=== PATIENT | male | born 1975 | race Hispanic/Latino ===

== ENCOUNTER 2017-06-02 | Emergency (ER) | payer SELFPAY ==
--- NOTE | 2017-06-02 13:29 | ER ---
Nurse's Notes [facility] Name: Joey Winter Jr Age: 41 yrs Sex: Male : 1975 Arrival Date: 06/02/2017 Time: 12:06 Bed 19 Private MD: Bryanna Abad Diagnosis: Direct inguinal hernia Presentation: 06/02 12:08 Presenting complaint: Patient states: last night i was turning over and i noticed a tw2 right sided pain, felt similar to a pulled groin, but different, i went to dr. dias yesterday, but nothing was done, i feel like my stomach is just rumbling all the time. Transition of care: patient was not received from another setting of care. Onset of symptoms was June 02, 2017. Care prior to arrival: None. 12:08 Method Of Arrival: Ambulatory tw2 12:08 Acuity: CATHIE 3 tw2 Triage Assessment: 12:14 General: Appears in no apparent distress. well groomed, Behavior is calm, cooperative, tw2 appropriate for age. Pain: Complains of pain in right lower quadrant. Historical: - Allergies: 12:14 No Known Allergies; tw2 - Home Meds: 12:14 None [Active]; tw2 - PMHx: 12:14 None; tw2 - PSHx: 12:14 None; tw2 - Immunization history:: Adult Immunizations up to date. - Social history:: Smoking status: Patient/guardian denies using tobacco. - Family history:: not pertinent. - Hospitalizations: : No recent hospitalization is reported. Screenin:31 Abuse screen: Denies threats or abuse. Denies injuries from another. Nutritional iw screening: No deficits noted. Tuberculosis screening: No symptoms or risk factors identified. Fall Risk None identified. Assessment: 13:31 General: Appears in no apparent distress. comfortable, Behavior is calm, cooperative. iw Pain: Complains of pain in groin. Neuro: Level of Consciousness is awake, alert, obeys commands, Oriented to person, place, time, situation, Moves all extremities. Full function. Cardiovascular: Patient's skin is warm and dry. Respiratory: Respiratory effort is even, unlabored, Respiratory pattern is regular, symmetrical. GI: Abdomen is flat, non-distended. Derm: Skin is intact. Musculoskeletal: Range of motion: intact in all extremities. Vital Signs: 12:11 BP 119 / 82; Pulse 100; Resp 18; Temp 98.(O); Pulse Ox 100% on R/A; Weight 61.23 kg tw2 (R); Height 5 ft. 7 in. (170.18 cm); Pain 3/10; 12:11 Body Mass Index 21.14 (61.23 kg, 170.18 cm) tw2 ED Course: 12:06 Patient arrived in ED. rg4 12:07 Bryanna Abad MD is Private Physician. rg4 12:11 Triage completed. tw2 12:14 Arm band placed on. tw2 12:53 Immanuel Douglas MD is Attending Physician. rn 13:28 Chavez Lassiter MD is Referral Physician. rn 13:30 Ainsley Murrell RN is Primary Nurse. iw 13:32 Patient has correct armband on for positive identification. iw 13:32 No provider procedures requiring assistance completed. Patient did not have IV access iw during this emergency room visit. Administered Medications: No medications were administered Outcome: 13:28 Discharge ordered by . rn 13:32 Medical screen evaluation completed per provider. Patient declined treatment. iw 13:32 Condition: good 13:32 Discharge instructions given to patient, Instructed on Following a medical screening exam, the patient was provided information regarding alternative care sites and resources available per registration personnel. 13:32 Patient left the ED. iw Signatures: Ainsley Murrell, MARY RN iw Immanuel Douglas MD MD rn Wise, Tara, RN RN Kathleen Sesay rg4
--- NOTE | 2017-06-02 13:29 | EDPHYS ---
Physician Documentation [facility] Name: Joey Winter Jr Age: 41 yrs Sex: Male : 1975 Arrival Date: 06/02/2017 Time: 12:06 Bed 19 Private MD: Bryanna Abad ED Physician Immanuel Douglas HPI: 06/02 13:24 This 41 yrs old Male presents to ER via Ambulatory with complaints of LOW ABD rn PAIN. 13:24 The patient presents with abdominal pain. Onset: The symptoms/episode began/occurred rn yesterday. The symptoms are described as achy, intermittent. Severity of pain: At its worst the pain was mild in the emergency department the pain is unchanged. The patient has not experienced similar symptoms in the past. The patient has not recently seen a physician. Reports lower groin pain, began last night, intermittent, felt small swelling, no trauma, denies fever/anorexia/vomiting/blood in stool. . Historical: - Allergies: 12:14 No Known Allergies; tw2 - Home Meds: 12:14 None [Active]; tw2 - PMHx: 12:14 None; tw2 - PSHx: 12:14 None; tw2 - Immunization history:: Adult Immunizations up to date. - Social history:: Smoking status: Patient/guardian denies using tobacco. - Family history:: not pertinent. - Hospitalizations: : No recent hospitalization is reported. ROS: 13:24 Constitutional: Negative for fever, chills, and weight loss, Eyes: Negative for injury, rn pain, redness, and discharge, Cardiovascular: Negative for chest pain, palpitations, and edema, Respiratory: Negative for shortness of breath, cough, wheezing, and pleuritic chest pain, Abdomen/GI: Negative for nausea, vomiting, diarrhea, and constipation, Back: Negative for injury and pain, : Negative for injury, bleeding, discharge, and swelling, MS/Extremity: Negative for injury and deformity, Skin: Negative for injury, rash, and discoloration, Neuro: Negative for headache, weakness, numbness, tingling, and seizure. Exam: 13:24 Constitutional: This is a well developed, well nourished patient who is awake, alert, rn and in no acute distress. Abdomen/GI: soft, + mild tenderness right pubic area with very small bulge with straining, no peritoneal signs, no skin changes, neg rovsing Vital Signs: 12:11 BP 119 / 82; Pulse 100; Resp 18; Temp 98.(O); Pulse Ox 100% on R/A; Weight 61.23 kg tw2 (R); Height 5 ft. 7 in. (170.18 cm); Pain 3/10; 12:11 Body Mass Index 21.14 (61.23 kg, 170.18 cm) tw2 MDM: 12:53 Patient medically screened. rn 13:24 Differential diagnosis: direct inguinal hernia. Data reviewed: vital signs, nurses rn notes, and as a result, I will discharge patient. Counseling: I had a detailed discussion with the patient and/or guardian regarding: the historical points, exam findings, and any diagnostic results supporting the discharge/admit diagnosis, the need for outpatient follow up, to return to the emergency department if symptoms worsen or persist or if there are any questions or concerns that arise at home. Medical screen evaluation completed. [facility] emergency medical condition absent. ED course: Pt without fever/vomiting/anorexia, or focal RLQ pain to indicate appendicitis, most likely direct hernia, no signs of strangulation or incarceration, will dc home with return precautions and general surgery f/u. . Administered Medications: No medications were administered Disposition: 06/02/17 13:28 Discharged to Home as Medical Screen. Impression: Direct inguinal hernia. - Condition is Stable. - Discharge Instructions: Hernia, Inguinal Hernia, Adult. - Medication Reconciliation Form, Thank You Letter, Antibiotic Education, Prescription Opioid Use form. - Follow up: Chavez Lassiter MD; When: As needed; Reason: Recheck today's complaints, Re-evaluation by your physician. - Problem is new. - Symptoms have improved. Signatures: Ainsley Murrell, RN RN iw Immanuel Douglas MD MD rn Wise, Tara, RN RN tw2
== END 2017-06-02 13:32 | disposition home or self-care (01) ==
DX: K40.90 Unilateral inguinal hernia, without obstruction or gangrene, not specified as recurrent (principal)
CPT/HCPCS: 99281

== ENCOUNTER 2020-03-13 22:58 | Emergency (ER) | payer SELFPAY ==
[2020-03-13] MEDS ORDERED: NA CHLORIDE 0.9% 1,000 ML ONE (23:45)
[2020-03-13 23:47] LABS: Absolute Lymphocytes (CBC) 1.3 K/uL (0.7-4.9); Basophils % 0.3 % (0-1.3); Lymphocytes % 26.6 % (15.3-44.8); Protime INR 1.07; RBC Red Blood Cell Count 4.34 M/uL (4.33-5.43)
[2020-03-14 00:05] LABS: ALT/SGPT 22 U/L (12-78); AST/SGOT 21 U/L (15-37); Albumin 4.1 g/dL (3.4-5.0); Alkaline Phosphatase 66 U/L (45-117); BUN Blood Urea Nitrogen 22 mg/dL (7-18); Bicarbonate 28 mmol/L (21-32); Bilirubin Direct < 0.1 mg/dL (0-0.2); Bilirubin Total 0.3 mg/dL (0.2-1.0); Glucose Level 103 mg/dL (74-106); Magnesium 2.1 mg/dL (1.8-2.4); Potassium 3.3 mmol/L (3.5-5.1); Protein, Total 7.9 g/dL (6.4-8.2); Sodium Level 139 mmol/L (136-145); Troponin (Emerg Dept Use Only) < 0.02 ng/mL (0.0-0.045)
[2020-03-14 01:16] LABS: T3 Free 3.08 pg/mL (2.18-3.98); T4,Total 11.4 ug/dL (4.5-12.1)
--- NOTE | 2020-03-14 01:25 | EDPHYS ---
Physician Documentation [facility] Name: Joey Winter Jr Age: 44 yrs Sex: Male : 1975 Arrival Date: 03/13/2020 Time: 23:03 Bed 4 Private MD: ED Physician Santos Rai HPI: 03/13 23:20 This 44 yrs old Male presents to ER via Ambulatory with complaints of cp Palpitations, High Blood Pressure. 23:20 The patient presents with a history of heart racing. Context: The symptoms occur with cp light activity, with strenuous activity. Onset: The symptoms/episode began/occurred 2 week(s) ago. Duration: The patient or guardian reports multiple episodes, that are intermittent. 23:20 Modifying factors: The symptoms are aggravated by exercising. cp 23:20 Associated signs and symptoms: Pertinent positives: anxiety, Pertinent negatives: chest cp pain, fever, syncope. Severity of symptoms: in the emergency department the symptoms are unchanged despite home interventions. The patient has been recently seen by a physician: earlier today, with similar presenting complaints, lab tests were done, saw family physician, awaiting results of blood work. Historical: - Allergies: 23:23 No Known Allergies; sg - Home Meds: 23:23 None [Active]; sg - PMHx: 23:23 None; sg - PSHx: 23:23 None; sg - Immunization history:: Adult Immunizations up to date. - Social history:: Smoking status: Patient denies any tobacco usage or history of. ROS: 23:23 Cardiovascular: Positive for palpitations, Negative for chest pain, edema. cp 23:23 Eyes: Negative for injury, pain, redness, and discharge. cp 23:23 Constitutional: Negative for body aches, chills, fever, poor PO intake. 23:23 Respiratory: Negative for cough, shortness of breath, wheezing. 23:23 Abdomen/GI: Negative for abdominal pain, nausea, vomiting, and diarrhea. 23:23 Skin: Negative for rash. 23:23 Neuro: Negative for altered mental status, headache, syncope, weakness. 23:23 All other systems are negative. Exam: 23:25 ECG was reviewed by the Attending Physician. cp 23:28 Constitutional: The patient appears in no acute distress, alert, awake, cp non-diaphoretic, non-toxic, well developed, well nourished, anxious. 23:28 Head/Face: Normocephalic, atraumatic. cp 23:28 Eyes: Periorbital structures: appear normal, Conjunctiva: normal, no exudate, no injection, Sclera: no appreciated abnormality, Lids and lashes: appear normal, bilaterally. 23:28 ENT: External ear(s): are unremarkable, Nose: is normal, Posterior pharynx: Airway: no evidence of obstruction, patent. 23:28 Neck: ROM/movement: is normal, is supple, without pain, no range of motions limitations, no nuchal rigidity. 23:28 Chest/axilla: Inspection: normal, Palpation: is normal, no crepitus, no tenderness. 23:28 Cardiovascular: Rate: normal, Rhythm: regular, Pulses: Pulses are 2+ in right radial artery and left radial artery. Edema: is not appreciated, JVD: is not appreciated. 23:28 Respiratory: the patient does not display signs of respiratory distress, Respirations: normal, no use of accessory muscles, no retractions, labored breathing, is not present, Breath sounds: are clear throughout, no decreased breath sounds, no stridor, no wheezing. 23:28 Abdomen/GI: Inspection: abdomen appears normal, Palpation: abdomen is soft and non-tender, in all quadrants, voluntary guarding, is not appreciated, involuntary guarding, is not appreciated. 23:28 Back: pain, is absent, ROM is normal. 23:28 Skin: no rash present. 23:28 Neuro: Orientation: to person, place \T\ time. Mentation: is normal, Cerebellar function: is grossly normal, Motor: moves all fours, strength is normal, Sensation: is normal. Vital Signs: 23:24 Pulse 74 MON; Resp 16; Temp 97.7; Pulse Ox 100% on R/A; sg 03/14 01:00 BP 130 / 77; Pulse 73; Resp 18; Pulse Ox 99% on R/A; ea 01:28 BP 116 / 70; Pulse 64; Resp 18; Pulse Ox 98% on R/A; ea MDM: 03/13 23:16 Patient medically screened. cp 03/14 01:22 Data reviewed: vital signs, nurses notes, lab test result(s), EKG, radiologic studies, cp plain films. 01: Test interpretation: by ED physician or midlevel provider: ECG, chest xray negative for cp infiltrates. Counseling: I had a detailed discussion with the patient and/or guardian regarding: the historical points, exam findings, and any diagnostic results supporting the discharge/admit diagnosis, lab results, radiology results, the need for outpatient follow up, a family practitioner, to return to the emergency department if symptoms worsen or persist or if there are any questions or concerns that arise at home. ED course: VSS. No episodes of tachcardia observed while monitoring patient in ED. Will discharge to home for continued monitoring. 03/13 23:08 Order name: UDS cp 03/13 23:27 Order name: Basic Metabolic Panel; Complete Time: 00:38 cp 03/14 00:38 Interpretation: Normal except: K 3.3; BUN 22; GFR 78. cp 03/13 23:27 Order name: CBC with Diff; Complete Time: 00:38 cp 03/13 23:27 Order name: LFT's; Complete Time: 00:38 cp 03/14 00:38 Interpretation: Normal except: GLOB 3.8. cp 03/13 23:27 Order name: Magnesium; Complete Time: 00:38 cp 03/13 23:27 Order name: PT-INR; Complete Time: 00:38 cp 03/14 00:41 Interpretation: PT 12.6; Reviewed. cp 03/13 23:27 Order name: Troponin (emerg Dept Use Only); Complete Time: 00:38 cp 03/13 23:27 Order name: TSH; Complete Time: 00:38 cp 03/14 00:39 Interpretation: Abnormal: TSH 8.380. cp 03/14 00:14 Order name: T4 Free; Complete Time: 00:38 EDMS 03/14 00:42 Order name: T3 Free; Complete Time: 01:17 cp 03/14 00:42 Order name: T4,Total; Complete Time: :17 cp 03/14 00:43 Order name: LAB Add On cp 03/14 00:47 Order name: T3, Total; Complete Time: 01:17 EDMS 03/13 23:08 Order name: EKG; Complete Time: 23:09 cp 03/13 23:08 Order name: EKG - Nurse/Tech; Complete Time: 23:47 cp 03/13 23:27 Order name: XRAY Chest (1 view) 03/13 23:27 Order name: Cardiac monitoring; Complete Time: 23:28 cp 03/13 23:27 Order name: IV Saline Lock; Complete Time: 23:28 cp 03/13 23:27 Order name: Labs collected and sent; Complete Time: 23:28 cp 03/13 23:27 Order name: O2 Per Protocol; Complete Time: 00:07 cp 03/13 23:27 Order name: O2 Sat Monitoring; Complete Time: 00:07 cp EC/19 23:25 Rate is 77 beats/min. Rhythm is regular. WV interval is normal. QRS interval is cp prolonged at 104 msec. QT interval is normal. T waves are Inverted in leads aVL, aVR. Interpreted by me. Reviewed by me. Administered Medications: 23:47 Drug: NS 0.9% 1000 ml Route: IV; Rate: 1 bolus; Site: right antecubital; coy 03/14 01:28 Follow up: Response: No adverse reaction; IV Status: Completed infusion; IV Intake: ea 1000ml Disposition: 07:00 Co-signature as Attending Physician, Santos Rai MD. ma2 Disposition: 03/14/20 01:24 Discharged to Home. Impression: Palpitations, Abnormal results of thyroid function studies - elevated TSH. - Condition is Stable. - Discharge Instructions: Holter Monitoring, Hypothyroidism, Palpitations. - Medication Reconciliation Form, Thank You Letter, Antibiotic Education, Prescription Opioid Use form. - Follow up: Private Physician; When: 1 - 2 days; Reason: Recheck today's complaints. - Problem is new. - Symptoms have improved. Signatures: Dispatcher [employer] EDAlvin Mancera RN RN John Mccracken PA PA cp Antunez, Elena, RN RN ea Alzahri, Mohammad, MD MD ma2 David Maldonado RN RN rv Corrections: (The following items were deleted from the chart) 01:38 01:24 03/14/2020 01:24 Discharged to Home. Impression: Palpitations; Abnormal results rv of thyroid function studies - elevated TSH. Condition is Stable. Forms are Medication Reconciliation Form, Thank You Letter, Antibiotic Education, Prescription Opioid Use. Follow up: Private Physician; When: 1 - 2 days; Reason: Recheck today's complaints. Problem is new. Symptoms have improved. cp
--- NOTE | 2020-03-14 01:25 | ER ---
Nurse's Notes [facility] Name: Joey Winter Jr Age: 44 yrs Sex: Male : 1975 Arrival Date: 03/13/2020 Time: 23:03 Bed 4 Private MD: Diagnosis: Palpitations;Abnormal results of thyroid function studies-elevated TSH Presentation: 03/13 23:22 Chief complaint: Patient states: I have the sensation that my heart is pounding, and sg feels like palpitations now, my blood pressure has been running higher than normal for me. Im pretty healthy, I work out regularly and do not use any work out supplements, no other symptoms reported for triage at this time. Coronavirus screen: Client denies travel out of the [place] in the last 14 days. At this time, the client does not indicate any symptoms associated with coronavirus-19. Ebola Screen: Patient negative for fever greater than or equal to 101.5 degrees Fahrenheit, and additional compatible Ebola Virus Disease symptoms Patient denies exposure to infectious person. Patient denies travel to an Ebola-affected area in the 21 days before illness onset. No symptoms or risks identified at this time. Initial Sepsis Screen: Does the patient meet any 2 criteria? No. Patient's initial sepsis screen is negative. Does the patient have a suspected source of infection? No. Patient's initial sepsis screen is negative. Risk Assessment: Do you want to hurt yourself or someone else? Patient reports no desire to harm self or others. Onset of symptoms was March 13, 2020. Care prior to arrival: None. Mechanism of Injury: No Mechanism of Injury. Transition of care: patient was not received from another setting of care. 23:22 Acuity: CATHIE 3 sg 23:22 Method Of Arrival: Ambulatory sg Historical: - Allergies: 23:23 No Known Allergies; sg - Home Meds: 23:23 None [Active]; sg - PMHx: 23:23 None; sg - PSHx: 23:23 None; sg - Immunization history:: Adult Immunizations up to date. - Social history:: Smoking status: Patient denies any tobacco usage or history of. Screenin:27 Abuse screen: Denies threats or abuse. Nutritional screening: No deficits noted. ea Tuberculosis screening: No symptoms or risk factors identified. Fall Risk IV access (20 points). Assessment: 23:26 General: Appears in no apparent distress. Behavior is anxious. Pain: Denies pain. ea Neuro: Level of Consciousness is awake, alert, obeys commands, Oriented to person, place, time. Cardiovascular: Patient's skin is warm and dry. Respiratory: Airway is patent Respiratory effort is even, unlabored, Respiratory pattern is regular, symmetrical. Derm: Skin is pink, warm \T\ dry. 03/14 00:50 Reassessment: Patient and/or family updated on plan of care and expected duration. Pain ea level reassessed. Patient is alert, oriented x 3, equal unlabored respirations, skin warm/dry/pink. Vital Signs: 03/13 23:24 Pulse 74 MON; Resp 16; Temp 97.7; Pulse Ox 100% on R/A; sg 03/14 01:00 BP 130 / 77; Pulse 73; Resp 18; Pulse Ox 99% on R/A; ea 01:28 BP 116 / 70; Pulse 64; Resp 18; Pulse Ox 98% on R/A; ea ED Course: 03/13 23:03 Patient arrived in ED. cf2 23:08 John Aden PA is PHCP. cp 23:08 Santos Rai MD is Attending Physician. cp 23:14 David Maldonado RN is Primary Nurse. rv 23:22 Arm band placed on. sg 23:23 Triage completed. sg 23:27 Patient has correct armband on for positive identification. Placed in gown. Bed in low ea position. Call light in reach. Side rails up X 1. security monitor on. Pulse ox on. NIBP on. 23:27 Inserted saline lock: 20 gauge in right antecubital area, using aseptic technique. ea Blood collected. 03/14 00:18 XRAY Chest (1 view) In Process Unspecified. EDMS 01:00 No provider procedures requiring assistance completed. ea 01:38 IV discontinued, intact, bleeding controlled, No redness/swelling at site. Pressure rv dressing applied. Administered Medications: 03/13 23:47 Drug: NS 0.9% 1000 ml Route: IV; Rate: 1 bolus; Site: right antecubital; ea 03/14 01:28 Follow up: Response: No adverse reaction; IV Status: Completed infusion; IV Intake: ea 1000ml Intake: 01:28 IV: 1000ml; Total: 1000ml. ea Outcome: 01:24 Discharge ordered by . cp 01:38 Discharged to home ambulatory. rv 01:38 Condition: good 01:38 Discharge instructions given to patient, Instructed on discharge instructions, follow up and referral plans. Demonstrated understanding of instructions, follow-up care. 01:38 Patient left the ED. rv Signatures: Dispatcher [employer] EDMS Alivn Bergman RN RN John Mccracken PA PA cp Antunez, Elena RN David Coles ea RN RN Salomón Ceballos cf2
[2020-03-14 01:42] VITALS: TEMP 97.7
[2020-03-14 01:45] VITALS: BP 116/70; O2SAT 98
--- NOTE | 2020-03-14 08:08 | RAD REPORT ---
EXAM DESCRIPTION: [facility] Single View03/14/2020 12:18 am CLINICAL HISTORY: Palpitations COMPARISON: 2012 FINDINGS: The lungs appear clear of acute infiltrate. The heart is normal size IMPRESSION: No acute abnormalities displayed
== END 2020-03-14 01:38 | disposition home or self-care (01) ==
LOC: ER 22:58
DX: R00.2 Palpitations (principal); R94.6 Abnormal results of thyroid function studies
CPT/HCPCS: 36415; 71045; 80048; 80076; 83735; 84436; 84439; 84443; 84480; 84481; 84484; 85025; 85610; 93005; 96360; 96361; 99284; J7030

== ENCOUNTER 2020-09-24 21:49 | Emergency (ER) | payer SELFPAY ==
--- OUTSIDE RECORDS SUMMARY | 2020-09-24 21:53 | XMS REPORT | Continuity of Care Document ---
:1975 Author Organization [facility] t Address [address] [place] [address] Dr. Martinez [address] [place] [id number] Care Team Providers Name Role Phone Unavailable Unavailable Unavailable Problems This patient has no known problems. Allergies, Adverse Reactions, Alerts This patient has no known allergies or adverse reactions. Medications This patient has no known medications. Procedures This patient has no known procedures. Encounters Start End Encounter Admission Attending Care Care Encounter Source Date/Time Date/Time Type Type Clinicians Facility Department ID 2020-09-10 2020-09-10 Emergency E [id number] [facility] 18:29:00 18:29:00 2020-03-19 2020-03-19 Emergency E [id number] [facility] 21:17:00 21:17:00 Results This patient has no known results.
[2020-09-24 23:40] LABS: Absolute Lymphocytes (CBC) 1.2 K/uL (0.7-4.9); Basophils % 0.4 % (0-1.3); Hematocrit 40.6 % (39.6-49.0); Lymphocytes % 25.4 % (15.3-44.8); MPV 8.8 fL (7.6-11.3); RBC Red Blood Cell Count 4.38 M/uL (4.33-5.43)
[2020-09-24 23:57] LABS: Albumin 4.1 g/dL (3.4-5.0); Bilirubin Direct 0.1 mg/dL (0-0.2); Bilirubin Total 0.3 mg/dL (0.2-1.0); Potassium 3.8 mmol/L (3.5-5.1); Protein, Total 7.8 g/dL (6.4-8.2)
[2020-09-25 00:28] LABS: Urine Blood Negative (Negative); Urine Glucose Negative (Negative); Urine Protein Negative (Negative)
--- NOTE | 2020-09-25 01:27 | EDPHYS ---
Physician Documentation [facility] Name: Joey Winter Jr Age: 44 yrs Sex: Male : 1975 Arrival Date: 09/24/2020 Time: 21:55 Bed Treatment Private MD: JAMES Physician John Vega HPI: 09/25 01:21 This 44 yrs old Male presents to ER via Ambulatory with complaints of delano Abdominal Pain. 01:21 The patient presents with abdominal pain in the upper abdomen, in the lower abdomen, delano abdominal distention in the upper abdomen, in the lower abdomen. Onset: The symptoms/episode began/occurred 1 month(s) ago. The symptoms do not radiate. Associated signs and symptoms: none. The symptoms are described as crampy. Modifying factors: The symptoms are alleviated by nothing, the symptoms are aggravated by nothing. Severity of pain: At its worst the pain was mild in the emergency department the pain is unchanged. The patient has experienced similar episodes in the past, several times. Historical: - Allergies: 09/24 23:19 No Known Allergies; bb - Home Meds: 23:19 None [Active]; bb - PMHx: 23:19 None; bb - PSHx: 23:19 None; bb - Immunization history:: Adult Immunizations up to date, Client reports having NOT received the Covid vaccine. - Social history:: Smoking status: Patient denies any tobacco usage or history of. Patient/guardian denies using alcohol, street drugs. - Family history:: not pertinent. ROS: 09/25 01:21 Constitutional: Negative for fever, chills, and weight loss, Eyes: Negative for injury, delano pain, redness, and discharge, ENT: Negative for injury, pain, and discharge, Neck: Negative for injury, pain, and swelling, Cardiovascular: Negative for chest pain, palpitations, and edema, Respiratory: Negative for shortness of breath, cough, wheezing, and pleuritic chest pain, Back: Negative for injury and pain, : Negative for injury, bleeding, discharge, and swelling, MS/Extremity: Negative for injury and deformity, Skin: Negative for injury, rash, and discoloration, Neuro: Negative for headache, weakness, numbness, tingling, and seizure, Psych: Negative for depression, anxiety, suicide ideation, homicidal ideation, and hallucinations, Allergy/Immunology: Negative for hives, rash, and allergies, Endocrine: Negative for neck swelling, polydipsia, polyuria, polyphagia, and marked weight changes, Hematologic/Lymphatic: Negative for swollen nodes, abnormal bleeding, and unusual bruising. Abdomen/GI: Positive for abdominal pain, constipation, abdominal cramps. Exam: 01:21 Constitutional: This is a well developed, well nourished patient who is awake, alert, delano and in no acute distress. Head/Face: Normocephalic, atraumatic. Eyes: Pupils equal round and reactive to light, extra-ocular motions intact. Lids and lashes normal. Conjunctiva and sclera are non-icteric and not injected. Cornea within normal limits. Periorbital areas with no swelling, redness, or edema. ENT: Nares patent. No nasal discharge, no septal abnormalities noted. Tympanic membranes are normal and external auditory canals are clear. Oropharynx with no redness, swelling, or masses, exudates, or evidence of obstruction, uvula midline. Mucous membranes moist. Neck: Trachea midline, no thyromegaly or masses palpated, and no cervical lymphadenopathy. Supple, full range of motion without nuchal rigidity, or vertebral point tenderness. No Meningismus. Chest/axilla: Normal chest wall appearance and motion. Nontender with no deformity. No lesions are appreciated. Cardiovascular: Regular rate and rhythm with a normal S1 and S2. No gallops, murmurs, or rubs. Normal PMI, no JVD. No pulse deficits. Respiratory: Lungs have equal breath sounds bilaterally, clear to auscultation and percussion. No rales, rhonchi or wheezes noted. No increased work of breathing, no retractions or nasal flaring. Abdomen/GI: Soft, non-tender, with normal bowel sounds. No distension or tympany. No guarding or rebound. No evidence of tenderness throughout. Back: No spinal tenderness. No costovertebral tenderness. Full range of motion. Male : Normal genitalia with no discharge or lesions. Skin: Warm, dry with normal turgor. Normal color with no rashes, no lesions, and no evidence of cellulitis. MS/ Extremity: Pulses equal, no cyanosis. Neurovascular intact. Full, normal range of motion. Neuro: Awake and alert, GCS 15, oriented to person, place, time, and situation. Cranial nerves II-XII grossly intact. Motor strength 5/5 in all extremities. Sensory grossly intact. Cerebellar exam normal. Normal gait. Psych: Awake, alert, with orientation to person, place and time. Behavior, mood, and affect are within normal limits. Vital Signs: 09/24 23:16 BP 131 / 91; Pulse 78; Resp 16 S; Temp 98.6(O); Pulse Ox 100% on R/A; Weight 57.61 kg bb (R); Height 5 ft. 7 in. (170.18 cm) (R); Pain 6/10; 09/25 01:14 BP 124 / 76; Pulse 69; Resp 16 S; Temp 96.5(O); Pulse Ox 98% on R/A; bb 09/24 23:16 Body Mass Index 19.89 (57.61 kg, 170.18 cm) MDM: 00:35 Patient medically screened. delano 01:23 Differential diagnosis: cholecystitis, Cholelithiasis, diverticulitis, gastritis, delano Mesenteric ischemia or infarction, non-specific abd pain, pancreatitis, Pyelonephritis, Ureterolithiasis, urinary tract infection. Data reviewed: vital signs, nurses notes, lab test result(s), radiologic studies, CT scan. Data interpreted: monitoring manager: not applicable for this patient encounter. rate is 69 beats/min, Pulse oximetry: on room air is 98 %. Counseling: I had a detailed discussion with the patient and/or guardian regarding: the historical points, exam findings, and any diagnostic results supporting the discharge/admit diagnosis, lab results, radiology results, the need for outpatient follow up, for definitive care, a family practitioner, a mexican food cook. 09/24 23:20 Order name: Basic Metabolic Panel; Complete Time: 00:52 bb 09/24 23:20 Order name: CBC with Diff; Complete Time: 00:52 bb 09/24 23:20 Order name: Hepatic Function; Complete Time: 00:52 bb 09/24 23:20 Order name: Lipase; Complete Time: 00:52 bb 09/24 23:29 Order name: CT Abd/Pelvis - IV Contrast Only 09/25 00:28 Order name: Urine Dipstick-Ancillary; Complete Time: 00:52 EDMS 09/24 23:20 Order name: IV Saline Lock; Complete Time: 23:30 bb 09/24 23:20 Order name: Labs collected and sent; Complete Time: 23:30 bb 09/24 23:27 Order name: Urine Dipstick-Ancillary (obtain specimen); Complete Time: 23:41 bb Administered Medications: No medications were administered Disposition Summary: 09/25/20 01:26 Discharge Ordered Location: Home delano Problem: new delano Symptoms: have improved delano Condition: Stable delano Diagnosis - Abdominal pain, Generalized delano - Constipation, unspecified delano Followup: delano - With: Private Physician - When: 2 - 3 days - Reason: Recheck today's complaints, Continuance of care, Re-evaluation by your physician Followup: delano - With: Fina Peterson MD - When: 2 - 3 days - Reason: Recheck today's complaints, Continuance of care, Re-evaluation by your physician Discharge Instructions: - Discharge Summary Sheet delano - Abdominal Pain, Adult delano - Constipation, Adult delano - Constipation, Adult, [id number] delano - Abdominal Pain, Adult, [id number] delano Forms: - Medication Reconciliation Form delano - Thank You Letter delano - Antibiotic Education delano - Prescription Opioid Use [facility] Prescriptions: - Colace 100 mg Oral Tablet - take 1 tablet by ORAL route every 12 hours; 14 tablet; Refills: 0, Product delano Selection Permitted - dicyclomine 20 mg Oral Tablet - take 1 tablet by ORAL route 4 times per day; 20 tablet; Refills: 0, Product delano Selection Permitted Signatures: Dispatcher [employer] John Valdes MD MD cha Ballard, Brenda, RN RN bb
--- NOTE | 2020-09-25 01:27 | ER ---
Nurse's Notes [facility] Name: Joey Winter Jr Age: 44 yrs Sex: Male : 1975 Arrival Date: 09/24/2020 Time: 21:55 Bed Treatment Private MD: Diagnosis: Abdominal pain, Generalized;Constipation, unspecified Presentation: 09/24 23:16 Chief complaint: Patient states: he has been having issues with constipation for a bb month has lost weight, and his appetite, is having abdominal pain and states "it's hard to function" not able to eat. Coronavirus screen: At this time, the client does not indicate any symptoms associated with coronavirus-19. Ebola Screen: No symptoms or risks identified at this time. Initial Sepsis Screen: Does the patient meet any 2 criteria? No. Patient's initial sepsis screen is negative. Does the patient have a suspected source of infection? No. Patient's initial sepsis screen is negative. Risk Assessment: Do you want to hurt yourself or someone else? Patient reports no desire to harm self or others. Onset of symptoms is unknown. 23:16 Method Of Arrival: Ambulatory bb 23:16 Acuity: CATHIE 2 bb Triage Assessment: 23:19 General: Appears uncomfortable, slender, Behavior is cooperative, anxious. Pain: bb Complains of pain in abdomen Pain currently is 6 out of 10 on a pain scale. Neuro: Level of Consciousness is awake, alert, obeys commands, Oriented to person, place, time, situation. Cardiovascular: Capillary refill < 3 seconds Patient's skin is warm and dry. Respiratory: Airway is patent Respiratory effort is even, unlabored. GI: Abdomen is non-distended, Reports lower abdominal pain, upper abdominal pain, constipation. Derm: Skin is pink, warm \\T\\ dry. Musculoskeletal: Circulation, motion, and sensation intact. Historical: - Allergies: 23:19 No Known Allergies; bb - Home Meds: 23:19 None [Active]; bb - PMHx: 23:19 None; bb - PSHx: 23:19 None; bb - Immunization history:: Adult Immunizations up to date, Client reports having NOT received the Covid vaccine. - Social history:: Smoking status: Patient denies any tobacco usage or history of. Patient/guardian denies using alcohol, street drugs. - Family history:: not pertinent. Screenin/03 00:30 Abuse screen: Denies threats or abuse. Nutritional screening: No deficits noted. bb Tuberculosis screening: No symptoms or risk factors identified. Fall Risk None identified. Assessment: 00:30 Reassessment: No changes from previously documented assessment. Patient is alert, bb oriented x 3, equal unlabored respirations, skin warm/dry/pink. see triage assessment. 01:15 Reassessment: Patient is alert, oriented x 3, equal unlabored respirations, skin bb warm/dry/pink. pt awaiting diagnostic results and disposition. 01:40 Reassessment: Patient is alert, oriented x 3, equal unlabored respirations, skin bb warm/dry/pink. pt verbalized understanding of and agrees to plan of care discharge instructions given pt ambulated with steady gait to exit. Vital Signs: 09/24 23:16 BP 131 / 91; Pulse 78; Resp 16 S; Temp 98.6(O); Pulse Ox 100% on R/A; Weight 57.61 kg bb (R); Height 5 ft. 7 in. (170.18 cm) (R); Pain 6/10; 09/25 01:14 BP 124 / 76; Pulse 69; Resp 16 S; Temp 96.5(O); Pulse Ox 98% on R/A; bb 09/24 23:16 Body Mass Index 19.89 (57.61 kg, 170.18 cm) bb ED Course: 09/24 21:55 Patient arrived in ED. am2 23:18 Triage completed. bb 23:19 Arm band placed on Patient placed in waiting room, Patient notified of wait time. Labs bb ordered per protocol. 23:20 Initial lab(s) drawn, by [facility], sent to lab. Urine collected: clean catch specimen, clear. bb Inserted saline lock: 20 gauge in right antecubital area, using aseptic technique. Blood collected. 09/25 00:11 CT Abd/Pelvis - IV Contrast Only In Process Unspecified. EDMS 00:30 Patient has correct armband on for positive identification. bb 00:30 No provider procedures requiring assistance completed. bb 00:32 Scarlet Garcia RN is Primary Nurse. bb 00:32 Scarlet Garcia RN is Primary Nurse. bb 00:35 John Vega MD is Attending Physician. delano 01:26 Fina Peterson MD is Referral Physician. delano :41 IV discontinued, intact, bleeding controlled, No redness/swelling at site. Pressure bb dressing applied. Administered Medications: No medications were administered Outcome: : Discharge ordered by . [facility] : Discharged to home ambulatory. bb : Condition: stable 01:41 Discharge instructions given to patient, Instructed on discharge instructions, follow up and referral plans. medication usage, Demonstrated understanding of instructions, follow-up care, medications, Prescriptions given X 2. 01:41 Patient left the ED. bb Signatures: Dispatcher [employer] EDNY John Vega MD MD cha Ballard, Brenda, RN RN Gwen Atkinson am2
[2020-09-25 02:04] VITALS: BP 124/76; TEMP 96.5; O2SAT 98
--- NOTE | 2020-09-25 11:37 | RAD REPORT ---
EXAM DESCRIPTION: CTAbdomen Pelvis W Contrast- 09/25/2020 12:04 am COMPARISON: None. CLINICAL HISTORY: ABD PAIN TECHNIQUE: CT of the abdomen and pelvis was acquired with IV contrast material. Coronal and sagitt al reconstructions were obtained. Automated exposure control was utilized on this examination as a dose lowering technique. FINDINGS: Lung bases: Clear. Liver: Normal. Gallbladder and biliary: Normal gallbladder. Unremarkable biliary tree. Pancreas: Normal. Spleen: Normal. Adrenal glands: Normal adrenal glands. Kidneys: A 1 mm nonobstructing right renal calculus is present. Stomach and Small Bowel: The stomach is normal. There is fecalization within the small bowel. Urinary bladder: Normal. Prostate/Male Urogenital: Normal. Colon and Appendix: The colon is unremarkable. No evidence of appendicitis. Retroperitoneum and lymph nodes: Normal. Vascular: Normal. Peritoneal cavity: No ascites or free air. Musculoskeletal and soft tissues: Soft tissues are unremarkable. No aggressive bone lesions. No com pression fracture. IMPRESSION: 1. No acute intra-abdominal abnormality. 2. Fecalization within the small bowel may indicate delayed bowel transit. 3. Small right renal nonobstructing calculus. Electronically signed by: Ubaldo Amaya MD 09/25/2020 12:23 AM CDT Due to temporary technical issues with the PACS/Fluency reporting system, reports are being signed by the in house radiologist without review as a courtesy to ensure prompt reporting. The interpreting r adiologist is fully responsible for the content of the report.
== END 2020-09-25 01:41 | disposition home or self-care (01) ==
LOC: ER 21:49
DX: K59.00 Constipation, unspecified (principal)
CPT/HCPCS: 36415; 74177; 80048; 80076; 81003; 82565; 83690; 85025; 99284; Q9967